=== PATIENT | male | born 2000 | race Caucasian/White ===

== ENCOUNTER 2025-02-26 09:27 | Emergency (ER) | payer OTHER ==
[~2025-02-26] VITALS: Ht 175.3 cm; Wt 55.0 kg
[2025-02-26 09:31] VITALS: BP 143/73; PULSE 90; RESP 18; TEMP 98.3; O2SAT 98
[2025-02-26] MEDS: SODIUM CHLORIDE 0.9% 1,000 ML IV ONE (11:38)
[2025-02-26] MEDS: PANTOPRAZOLE SODIUM 40 MG/VIAL IV ONE (11:38)
[2025-02-26] MEDS: LORAZEPAM 2MG/ML UD SYRINGE IV SCH (11:38)
[2025-02-26 12:04] LABS: BASOPHILS % 0.6 % (0.0-2.0); EOSINOPHILS % 0.3 % (0.0-5.0); HEMATOCRIT. 39.0 % (42.0-52.0); HEMOGLOBIN. 13.4 g/dL (14.0-18.0); LYMPHOCYTES % 19.1 % (20.0-50.0); MEAN PLATELET VOLUME 8.7 fl (7.4-10.4); MONOCYTES % 8.0 % (2.0-8.0); NEUTROPHILS % 72.0 % (40.0-76.0); PLATELET 371 x1000/uL (130-400); RED BLOOD CELL COUNT 4.49 mill/uL (4.7-6.1); RED CELL DISTRIBUTION WIDTH 12.9 % (11.6-14.6)
[2025-02-26 12:22] LABS: CREATININE 0.7 mg/dL (0.6-1.3); PROTEIN TOTAL 8.0 g/dL (6.0-8.3); UREA NITROGEN BLOOD < 5 mg/dL (9-23)
[2025-02-26 12:24] LABS: ASPARTATE AMINOTRANSFERASE 39 IU/L (<34); BILIRUBIN DIRECT 0.5 mg/dL (<=3.0); BILIRUBIN TOTAL 1.4 mg/dL (0.1-1.0)
== END 2025-02-26 16:01 | disposition left against medical advice (07) ==
LOC: ER 09:27
DX: S00.11XA Contusion of right eyelid and periocular area, initial encounter (principal); X58.XXXA Exposure to other specified factors, initial encounter; Y93.89 Activity, other specified; Y92.89 Other specified places as the place of occurrence of the external cause; Y99.8 Other external cause status
CPT/HCPCS: 99284; 96365; 96375; 80076; 80048; 83690; 85025; 36415; 93005; J2060; J2470; J7030